=== PATIENT | female | born 1965 | race African-American/Black ===

== ENCOUNTER → 2016-08-20 | Outpatient (CLI) | payer MEDICARE, MEDICAID | END | disposition home or self-care (01) | LOC: PCVCCLINIC 15:15 | PROVIDERS: ATTEND Internal Medicine Cardiovascular Disease | DX: I12.9 Hypertensive chronic kidney disease with stage 1 through stage 4 chronic kidney disease, or unspecified chronic kidney disease (principal); E11.22 Type 2 diabetes mellitus with diabetic chronic kidney disease; N18.4 Chronic kidney disease, stage 4 (severe); E78.2 Mixed hyperlipidemia; E11.65 Type 2 diabetes mellitus with hyperglycemia; Z99.2 Dependence on renal dialysis; Z79.899 Other long term (current) drug therapy; Z88.0 Allergy status to penicillin; Z88.1 Allergy status to other antibiotic agents; Z88.2 Allergy status to sulfonamides; Z91.040 Latex allergy status | CPT/HCPCS: 80061; 93005; G0463 ==

== ENCOUNTER → 2017-01-12 | Outpatient (CLI) | payer MEDICARE, MEDICAID ==
--- NOTE | 2017-01-12 11:57 | PCVCIMAG ---
APPROVED REPORT Study performed: 01/12/2017 09:23:41 EXAM: Comprehensive 2D, Doppler, and color-flow Echocardiogram Patient Location: Echo lab Room #: 2Status: routine BSA: 2.16 HR: 87 bpmBP: 108/76 mmHg Rhythm: NSR Other Information Study Quality: Good Risk Factors: Cardiac Risk Factors: HTN, DM, ESRD Indications CAD Tachycardia Hypertension/HDD 2D Dimensions LVEF(%): 67.45 (>50%) IVSd: 7.93 (7-11mm)LVOT Diam: 21.98 (18-24mm) LVDd: 45.33 mm PWd: 6.22 (7-11mm)Ascending Ao: 38.19 (22-36mm) LVDs: 28.41 (25-40mm) Left Atrium: 31.06 (27-40mm) Aortic Root: 31.63 mm LV Single Plane 4CH: 55.87 % LV Single Plane 2CH: 54.42 %Servin's LVEF: 55.15 % Biplane EF: 56.2 % Volumes Left Atrial Volume (Systole) Single Plane 4CH: 48.09 mLSingle Plane 2CH: 42.95 mL Biplane LA Volume: 48.00 mLLA ESV Index: 22.00 mL/m2 Aortic Valve AoV Peak Nikolay.: 1.91 m/s AO Peak Gr.: 14.52 mmHgLVOT Max P.07 mmHg LVOT Max V: 1.01 m/s [place] Vmax: 2.01 cm2 Mitral Valve E/A Ratio: 0.9 MV Decel. Time: 120.00 ms MV E Max Nikolay.: 0.79 m/s MV A Nikolay.: 0.86 m/s IVRT: 96.89 ms TDI E/Medial E': 7.18 Medial E' Nikolay.: 0.11 m/s Preload (E/e): 0.10 (0-8m/s) Pulmonary Valve PV Peak Nikolay.: 1.14 m/sPV Peak Gr.: 5.17 mmHg Pulmonary Vein P Vein S: 0.55 m/sP Vein A: 0.20 m/s P Vein D: 0.60 m/sP Vein A Dur.: 58.8 msec P Vein S/D Ratio: 0.92 Tricuspid Valve TR Peak Nikolay.: 2.63 m/s TR Peak Gr.: 27.66 mmHg TV Vmax: 0.66 m/sPA Pressure: 35.00 mmHg Left Ventricle The left ventricle is normal size. There is normal LV segmental wall motion. There is normal left ventricular wall thickness. Left ventricular systolic function is normal. The left ventricular ejection fraction is within the normal range. LVEF is 55-60%. The left ventricular diastolic function is normal. Right Ventricle The right ventricle is normal size. The right ventricular systolic function is normal. Atria The left atrium size is normal. The right atrium size is normal. Aortic Valve The aortic valve is normal in structure. No aortic regurgitation is present. There is no aortic valvular stenosis. Mitral Valve The mitral valve is normal in structure. There is no mitral valve regurgitation noted. No evidence of mitral valve stenosis. Tricuspid Valve The tricuspid valve is normal in structure. Mild tricuspid regurgitation. Mild pulmonary hypertension with a PA pressure of 35mmHg. Pulmonic Valve The pulmonary valve is normal in structure. There is no pulmonic valvular regurgitation. Great Vessels The aortic root is normal in size. The ascending aorta is borderline dilated. IVC is normal in size and collapses with >50% inspiration Pericardium There is no pericardial effusion. There is no pleural effusion. <Conclusion> The left ventricle is normal size. Left ventricular systolic function is normal. The left ventricular ejection fraction is within the normal range. LVEF is 55-60%. The left ventricular diastolic function is normal. The right ventricle is normal size. The left atrium size is normal. The aortic valve is normal in structure. There is no aortic valvular stenosis. There is no mitral valve regurgitation noted. Mild tricuspid regurgitation. Mild pulmonary hypertension with a PA pressure of 35mmHg. There is no pericardial effusion.
== END | disposition home or self-care (01) ==
LOC: PCVCIMAG 09:06
PROVIDERS: ATTEND Internal Medicine Cardiovascular Disease
DX: I25.10 Atherosclerotic heart disease of native coronary artery without angina pectoris (principal); I12.0 Hypertensive chronic kidney disease with stage 5 chronic kidney disease or end stage renal disease; N18.6 End stage renal disease; E11.22 Type 2 diabetes mellitus with diabetic chronic kidney disease; R00.0 Tachycardia, unspecified; I07.1 Rheumatic tricuspid insufficiency
CPT/HCPCS: 80061; 93005; 93306; G0463

== ENCOUNTER → 2017-08-12 | Outpatient (CLI) | payer MEDICARE, MEDICAID | END | disposition home or self-care (01) | LOC: PCVCCLINIC 11:35 | DX: I25.10 Atherosclerotic heart disease of native coronary artery without angina pectoris (principal); E11.65 Type 2 diabetes mellitus with hyperglycemia; N18.9 Chronic kidney disease, unspecified; E78.00 Pure hypercholesterolemia, unspecified; Z99.2 Dependence on renal dialysis | CPT/HCPCS: 80061; 93005; G0463 ==